=== PATIENT | male | born 1990 | race Caucasian/White ===

== ENCOUNTER 2021-08-23 18:27 | Emergency (ER) | payer MEDICARE ==
[2021-08-23] MEDS ORDERED: Amoxicillin/Potassium Clav 875 MG TAB ONE (19:03)
== END 2021-08-23 19:12 | disposition home or self-care (01) ==
LOC: NAV ERS 18:27
DX: K04.7 Periapical abscess without sinus (principal); K02.9 Dental caries, unspecified; K21.9 Gastro-esophageal reflux disease without esophagitis; F17.200 Nicotine dependence, unspecified, uncomplicated; Z79.899 Other long term (current) drug therapy
CPT/HCPCS: 99282

== ENCOUNTER 2021-09-17 02:37 | Emergency (ER) | payer MEDICARE ==
[2021-09-17] MEDS ORDERED: Ketorolac Tromethamine 60 MG/2 ML VIAL ONE (02:58)
[2021-09-17] MEDS ORDERED: Penicillin V Potassium 250 MG TAB ONE (02:58)
== END 2021-09-17 03:16 | disposition home or self-care (01) ==
LOC: NAV ERS 02:37
DX: K02.9 Dental caries, unspecified (principal); K21.9 Gastro-esophageal reflux disease without esophagitis; F17.200 Nicotine dependence, unspecified, uncomplicated
CPT/HCPCS: 96372; 99282; J1885

== ENCOUNTER 2021-10-15 18:46 | Emergency (ER) | payer MEDICARE ==
[2021-10-15] MEDS ORDERED: Amoxicillin/Potassium Clav 875 MG TAB ONE (19:20)
== END 2021-10-15 19:19 | disposition home or self-care (01) ==
LOC: NAV ERS 18:46
DX: K04.7 Periapical abscess without sinus (principal); I10 Essential (primary) hypertension; K21.9 Gastro-esophageal reflux disease without esophagitis; F17.210 Nicotine dependence, cigarettes, uncomplicated; Z79.899 Other long term (current) drug therapy
CPT/HCPCS: 99282

== ENCOUNTER 2022-02-03 08:04 | Emergency (ER) | payer MEDICARE | END 2022-02-03 09:40 | disposition home or self-care (01) | LOC: NAV ERS 08:04 | DX: B34.9 Viral infection, unspecified (principal); I10 Essential (primary) hypertension; K21.9 Gastro-esophageal reflux disease without esophagitis; F17.210 Nicotine dependence, cigarettes, uncomplicated; Z79.899 Other long term (current) drug therapy | CPT/HCPCS: 87081; 87430; 87804; 99284 ==

== ENCOUNTER 2023-11-08 12:16 | Emergency (ER) | payer BC, MEDICARE, SELFPAY ==
[2023-11-08] MEDS ORDERED: Ibuprofen 800 MG TAB ONE (12:56)
== END 2023-11-08 13:10 | disposition home or self-care (01) ==
LOC: NAV ERS 12:16
DX: T63.441A Toxic effect of venom of bees, accidental (unintentional), initial encounter (principal); L03.116 Cellulitis of left lower limb; I10 Essential (primary) hypertension; K21.9 Gastro-esophageal reflux disease without esophagitis; F17.210 Nicotine dependence, cigarettes, uncomplicated; Z79.899 Other long term (current) drug therapy
CPT/HCPCS: 99282

== ENCOUNTER 2025-01-25 07:35 | Emergency (ER) | payer BC, MEDICARE ==
[2025-01-25] MEDS ORDERED: Lidocaine 1% w/Epinephrine 1:100K 20 ML VIAL ONE (08:08)
[2025-01-25] MEDS ORDERED: Lidocaine Viscous Sol 2% 15 ml UD Cup ONE (08:13)
== END 2025-01-25 08:39 | disposition home or self-care (01) ==
LOC: NAV ERS 07:35
DX: K04.4 Acute apical periodontitis of pulpal origin (principal); K04.7 Periapical abscess without sinus; I10 Essential (primary) hypertension; F17.210 Nicotine dependence, cigarettes, uncomplicated
CPT/HCPCS: 64400